=== PATIENT | female | born 1985 | race Two or more races ===

== ENCOUNTER 2021-09-19 18:09 | Emergency (ER) | payer MEDICAID ==
[~2021-09-19] VITALS: Ht 165.1 cm; Wt 75.0 kg
[2021-09-19 18:17] VITALS: BP 127/68
[2021-09-19] MEDS ORDERED: ACET-2708 PO (18:21)
== END 2021-09-19 19:00 | disposition home or self-care (01) ==
LOC: ER 18:09
DX: Z53.21 Procedure and treatment not carried out due to patient leaving prior to being seen by health care provider (principal)
CPT/HCPCS: 99281